=== PATIENT | female | born 2000 | race Caucasian/White ===

== ENCOUNTER 2021-10-05 21:39 | Emergency (ER) | payer MEDICAID ==
[~2021-10-05] VITALS: Ht 162.6 cm; Wt 102.1 kg
[2021-10-05 22:27] VITALS: BP 129/81
[2021-10-06] MEDS ORDERED: NACL 0.9% 1,000 ML IV ONE (00:05)
[2021-10-06] MEDS ORDERED: cefTRIAXone 1,000 MG VIAL ONE (00:25)
[2021-10-06 00:32] LABS: BASOPHILS % (AUTO) 0.8 % (0.0-2.0); EOSINOPHILS # (AUTO) 0.1 K/uL (0-0.4); EOSINOPHILS % (AUTO) 2.1 % (0.0-4.0); HEMATOCRIT 33.9 % (36-48); HEMOGLOBIN 10.8 g/dL (12.0-16.0); LYMPHOCYTES # (AUTO) 2.3 K/uL (2.5-16.5); LYMPHOCYTES % (AUTO) 44.6 % (20.5-51.1); MEAN CORPUSCULAR HEMOGLOBIN 23 pg (27-31); MEAN CORPUSCULAR HGB CONC 32 g/dL (33-37); MEAN CORPUSCULAR VOLUME 73.1 fL (80-94); MONOCYTES # (AUTO) 0.6 K/uL (0.8-1.0); MONOCYTES % (AUTO) 10.8 % (1.7-9.3); NEUTROPHILS # (AUTO) 2.2 K/uL (1.8-7.7); NEUTROPHILS % (AUTO) 41.7 % (42.2-75.2); PLATELET COUNT (AUTO) 415 K/uL (140-450); RED BLOOD CELL COUNT(AUTO) 4.63 MIL/uL (4.20-5.40); RED CELL DISTRIBUTION WIDTH 16.5 % (11.6-13.7); WHITE BLOOD COUNT (AUTO) 5.2 K/uL (4.5-11.0)
[2021-10-06 00:49] LABS: ALBUMIN 3.2 g/dL (3.4-5.0); ANION GAP 12.8 (8-16); CARBON DIOXIDE 27.2 mmol/L (21-32); CREATININE 0.5 mg/dL (0.6-1.3); TOTAL BILIRUBIN 0.2 mg/dL (0.0-1.0)
[2021-10-06 03:27] LABS: APPEARANCE,URINE CLEAR (CLEAR); BLOOD, URINE NEGATIVE (NEGATIVE); COLOR,URINE YELLOW (YELLOW); UGLUCOSE NEGATIVE (NEGATIVE)
[2021-10-06 03:28] LABS: BILIRUBIN,URINE NEGATIVE (NEGATIVE); LEUKOCYTE ESTERASE ,URINE NEGATIVE (NEGATIVE); NITRITE, URINE NEGATIVE (NEGATIVE)
[2021-10-06] MEDS ORDERED: NAPR-54 PO (03:42)
== END 2021-10-06 03:52 | disposition home or self-care (01) ==
LOC: MED 21:39
DX: S33.9XXA Sprain of unspecified parts of lumbar spine and pelvis, initial encounter (principal); X58.XXXA Exposure to other specified factors, initial encounter; Y93.89 Activity, other specified; Y92.89 Other specified places as the place of occurrence of the external cause; Y99.8 Other external cause status
CPT/HCPCS: 36415; 80053; 81003; 81025; 83605; 85025; 87040; 96365; 96366; 99284; J0696

== ENCOUNTER 2022-01-09 23:40 | Emergency (ER) | payer MEDICAID ==
[~2022-01-09] VITALS: Ht 162.6 cm; Wt 90.7 kg
[~2022-01-09 23:40] MED LIST: NAPR-54 PO
[2022-01-10 00:07] VITALS: BP 129/80
--- NOTE | 2022-01-10 00:19 | NUR ---
URINE COLLECTED AND PLACED IN LOBBY
--- NOTE | 2022-01-10 00:32 | NUR ---
PT TO BED 05.
[2022-01-10] MEDS: ACETAMINOPHEN EXTRA STRENGTH 500 MG TAB PO ONE (01:07)
--- NOTE | 2022-01-10 01:08 | NUR ---
LAB HAS UA. PHLEBOTOMY AT BEDSIDE AT THIS TIME. TYLENOL HAS BEEN GIVEN FOR PAIN RELIEF. PT NOW AWAITING US.
--- NOTE | 2022-01-10 01:28 | NUR ---
US AT BEDSIDE
[2022-01-10 01:29] LABS: BASOPHILS % (AUTO) 0.7 % (0.0-2.0); EOSINOPHILS # (AUTO) 0.1 K/uL (0-0.4); EOSINOPHILS % (AUTO) 2.4 % (0.0-4.0); LYMPHOCYTES # (AUTO) 1.8 K/uL (2.5-16.5); LYMPHOCYTES % (AUTO) 36.2 % (20.5-51.1); MEAN CORPUSCULAR HEMOGLOBIN 24 pg (27-31); MEAN CORPUSCULAR HGB CONC 32 g/dL (33-37); MEAN CORPUSCULAR VOLUME 73.4 fL (80-94); MONOCYTES # (AUTO) 0.7 K/uL (0.8-1.0); MONOCYTES % (AUTO) 13.6 % (1.7-9.3); NEUTROPHILS # (AUTO) 2.4 K/uL (1.8-7.7); NEUTROPHILS % (AUTO) 47.1 % (42.2-75.2); PLATELET COUNT (AUTO) 374 K/uL (140-450); RED BLOOD CELL COUNT(AUTO) 4.22 MIL/uL (4.20-5.40); RED CELL DISTRIBUTION WIDTH 17.8 % (11.6-13.7)
[2022-01-10 01:41] LABS: ALBUMIN 2.6 g/dL (3.4-5.0); ANION GAP 10.4 (8-16); CARBON DIOXIDE 27.5 mmol/L (21-32); CREATININE 0.5 mg/dL (0.6-1.3); POTASSIUM 3.9 mmol/L (3.5-5.1); TOTAL BILIRUBIN 0.1 mg/dL (0.0-1.0)
[2022-01-10] MEDS ORDERED: ACET-10509 PO (04:20)
[2022-01-10] MEDS ORDERED: CEPH-588 PO (04:20)
[2022-01-10 05:14] VITALS: BP 129/80
--- NOTE | 2022-01-10 05:14 | NUR ---
Patient discharged with v/s stable. Written and verbal after care instructions given and explained. Patient alert, oriented and verbalized understanding of instructions. Ambulatory with steady gait. All questions addressed prior to discharge. ID band removed. Patient advised to follow up with PMD. Rx of KEFLEX AND TYLENOL given. Patient educated on indication of medication including possible reaction and side effects. Opportunity to ask questions provided and answered.
== END 2022-01-10 05:14 | disposition home or self-care (01) ==
LOC: MED 23:40
DX: O20.0 Threatened abortion (principal); O23.41 Unspecified infection of urinary tract in pregnancy, first trimester; Z3A.01 Less than 8 weeks gestation of pregnancy; Z79.899 Other long term (current) drug therapy
CPT/HCPCS: 36415; 76817; 80053; 81002; 81025; 84702; 85025; 86886; 86900; 86901; 99284; Q0092

== ENCOUNTER 2022-04-19 16:00 | Emergency (ER) | payer MEDICAID ==
[~2022-04-19 16:00] MED LIST changes: +ACET-10509 PO; +CEPH-588 PO
--- NOTE | 2022-04-19 16:38 | NUR ---
CALLEDX1. NO SHOW. Addendum: 04/19/22 at 1820 by [email or web address] PATIENT LEFT WITHOUT BEING SEEN BY DR. DR MORENO. NO FURTHER CARE PROVIDED FOR PATIENT.
--- NOTE | 2022-04-19 16:50 | NUR ---
CALLEDX2. NO SHOW.
--- NOTE | 2022-04-19 17:25 | NUR ---
CALLEDX2. NO SHOW.
== END 2022-04-19 16:38 | disposition left against medical advice (07) ==
LOC: MED 16:00
DX: J11.1 Influenza due to unidentified influenza virus with other respiratory manifestations (principal); Z53.21 Procedure and treatment not carried out due to patient leaving prior to being seen by health care provider

== ENCOUNTER 2023-10-29 18:08 | Emergency (ER) | payer MEDICAID ==
[~2023-10-29 18:08] MED LIST changes: -ACET-10509 PO; +ACET500T99 PO; +NAPR-337 PO; -NAPR-54 PO
== END 2023-10-29 19:03 | disposition left against medical advice (07) ==
LOC: MED 18:08
DX: R10.9 Unspecified abdominal pain (principal); Z53.21 Procedure and treatment not carried out due to patient leaving prior to being seen by health care provider